=== PATIENT | male | born 1985 | race Caucasian/White ===

== ENCOUNTER 2018-06-20 12:04 | Inpatient (IN) ==
[2018-06-20 13:34] LABS: URINE SOURCE CLEAN CATCH
[2018-06-20 13:40] LABS: BASO# 0.06 X1000 (0.0-0.2); BASO% 0.4 % (0.0-0.8); EOS# 0.08 X1000 (0.0-0.7); EOS% 0.5 % (0.0-10.0); HEMATOCRIT 41.4 % (42.0-52.0); HEMOGLOBIN 13.7 g/dL (14.0-18.0); IMM GRAN# 0.07 X1000 (0.0-0.04); IMM GRAN% 0.4 % (0.0-0.5); LYMPH# 2.88 X1000 (1.2-3.4); LYMPH% 18.3 % (20.5-51.1); MCH 32.3 PG (27-31); MCHC 33.1 g/dL (33-37); MCV 97.6 FL (81-99); MONO% 10.1 % (1.7-9.3); MPV 9.9 FL (7.4-10.4); NEUT# 11.09 X1000 (1.4-6.5); NEUT% 70.3 % (42.2-75.2); PLT 463 X1000 (130-400); RBC 4.24 XMIL (4.7-6.1); RDW 12.2 % (11.5-14.5); WBC 15.78 X1000 (4.8-10.8)
[2018-06-20 13:41] LABS: BILIRUBIN URINE NEGATIVE (NEGATIVE); BLOOD URINE NEGATIVE (NEGATIVE); COLOR YELLOW; GLUCOSE URINE NEGATIVE (NEGATIVE); KETONE URINE >150 mg/dL (NEGATIVE); LEUKOCYTES URINE NEGATIVE (NEGATIVE); NITRITE URINE NEGATIVE (NEGATIVE); PH URINE 5.5; PROTEIN URINE 30 mg/dL (NEGATIVE); SP GRAVITY URINE 1.027; TURBIDITY URINE CLEAR (CLEAR); UROBILINOGEN URINE NORMAL (NORMAL)
[2018-06-20 13:43] LABS: UR EPITHELIAL CELLS <10 /HPF (<10); URINE BACTERIA NEGATIVE /HPF; URINE RBC <10 /HPF (<10); URINE WBC <10 /HPF (<10)
[2018-06-20 14:00] LABS: ESTIMATED GFR > 60
[2018-06-20 14:18] LABS: AGAP 24; BUN 14 mg/dL (8-22); CALCIUM 8.9 mg/dL (8.8-10.2); CHLORIDE 94 mmol/L (98-107); COSMO 264; CREATININE 0.8 mg/dL (0.7-1.2); GLUCOSE 52 mg/dL (70-104); POTASSIUM 4.9 mmol/L (3.5-5.1); SODIUM 133 mmol/L (136-145); TCO2 15 mmol/L (25-35)
[2018-06-20 14:29] LABS: UR BARBITUATES QUAL NONE DETECTED (NONE DETECT)
[2018-06-20 14:30] LABS: UR AMPHETAMINES QUAL NONE DETECTED (NONE DETECT); UR BENZODIAZEPIN QUAL NONE DETECTED (NONE DETECT); UR CANNABINOIDS QUAL NONE DETECTED (NONE DETECT); UR COCAINE QUAL NONE DETECTED (NONE DETECT); UR METHADONE QUAL NONE DETECTED (NONE DETECT); UR OPIATES QUAL NONE DETECTED (NONE DETECT); UR OXYCODONE QUAL NONE DETECTED (NONE DETECT); UR PCP QUAL NONE DETECTED (NONE DETECT)
--- NOTE | 2018-06-20 14:48 | Diag Imaging Result Doc PS360 ---
EXAM: CHEST-PORTABLE INDICATION: cough TECHNIQUE: One view COMPARISON: None. FINDINGS: Inspiration is very suboptimal. The lungs are grossly clear. There is no discrete pleural fluid collection or pneumothorax. The cardiomediastinal silhouette and central vasculature are grossly unremarkable. IMPRESSION: Low lung volumes but no definite acute pathology, otherwise. Electronically signed by Joey Valdez 06/20/2018 2:45 PM
[2018-06-20] MEDS ORDERED: NS 1,000 ML IV ONE (14:52)
[2018-06-20] MEDS ORDERED: ROCEPHIN 1 GM in NS 50 ML IV ONE (14:53)
[2018-06-20] MEDS ORDERED: D5 LR 500 ML IV ONE ×2 (15:52→16:15)
[2018-06-20] MEDS ORDERED: ZOFRAN IV ONE (15:52)
--- NOTE | 2018-06-20 15:57 | PROVIDER DOCUMENTATION ---
This chart was entered by Inna Chaney Scribe, acting as scribe for Ted Melgar MD. HPI-General Adult - General Chief Complaint: General Adult Stated Complaint: right ankle pain Time Seen by Provider: 06/20/18 12:09 Source: patient Allergies/Adverse Reactions: Patient Allergies Allergy/AdvReac Type Severity Reaction Status Date / Time No Known Allergies Allergy Verified 06/20/18 12:38 Home Medications: Home Medication List Medication Instructions Recorded Confirmed Last Taken Type NK [No Home Medications] 06/20/18 06/20/18 Unknown History - History of Present Illness -Gen Adult Nature of Presenting Problems: 32 yom presents to ED by way of EMS c/o aching all over, headache, fever, chills , RIGHT ankle pain, LEFT hip pain for unknown duration. EMS reports patient was dismissed from [facility] 4x, police were called. EMS also reports HX of cocaine and crack use, as well as HX of SI. Location of Pain/Injury: reports: head, generalized Pain Radiation: reports: no radiation Quality of Pain: reports: aching Severity: reports: mild Onset/Duration: reports: unsure Timing: reports: still present, intermittent, constant Context/Activities at Onset: reports: none Modifying Factors: improves with: nothing Associated Symptoms: reports: fever/chills. denies: cough Similar Symptoms Previously?: No Recently seen or treated by another doctor?: Yes Review of Systems - Adult - REVIEW OF SYSTEMS - ADULT ROS:: limited per condition Constitutional: reports: chills, fever Eyes: denies: discharge, dry eyes Ears, Nose, Mouth & Throat: denies: ear discharge, ear pain Cardiovascular: denies: chest pain, palpitations Respiratory: reports: cough Gastrointestinal: denies: abdominal pain, diarrhea Genitourinary: denies: dysuria, hematuria Musculoskeletal: reports: muscle aches, neck pain, other ( RIGHT ankle pain, LEFT hip pain) Integumentary: reports: no symptoms reported Neurological: reports: dizziness/vertigo, headache/migraines Psychiatric: reports: no symptoms reported Endocrine: reports: no symptoms reported Hematologic/Lymphatic: reports: no symptoms reported Allergic/Immunologic: reports: no symptoms reported All Other Systems: Reviewed and Negative Past History - Adult - PAST MEDICAL HISTORY-ADULT Review of Records: reports: Old Records Reviewed, Nursing Assessment Review, Medications Reviewed Major Childhood Illnesses: reports: denies history Cardiovascular: reports: denies history Respiratory: reports: denies history Gastrointestinal: reports: denies history Obstetrical/Gynecological: reports: denies history Genitourinary: reports: denies history Musculoskeletal: reports: denies history Neurological: reports: denies history Psychiatric: reports: bipolar, schizophrenia Endocrine/Immune: reports: thyroid disorder Other Conditions: reports: denies history - PRIOR SURGERIES/PROCEDURES Surgical/Procedure History: reports: other (cyst removal) - IMMUNIZATION STATUS Childhood Immunizations: See Nurse Assessment Flu Vaccine: See Nurse Assessment - FAMILY HISTORY Family History: reviewed, not pertinent - SOCIAL HISTORY Smoking: cigarettes, greater than 1 pack/day Substance Use: alcohol, cocaine, other (Crack) Living Situation: homeless Physical Exam-General - PHYSICAL EXAM-ADULT Initial Vital Signs Reviewed: Yes - CONSTITUTIONAL General Appearance: alert, slow to respond - EYES Eyes: PERRL/EOMI, pink conjunctivae - HEAD, EARS, NOSE, MOUTH & THROAT HENMT: normocephalic/atraumatic, moist mucous membranes - NECK Neck: non-tender, full range of motion - RESPIRATORY Respiratory: chest non-tender, lungs clear, normal breath sounds, no respiratory distress, no accessory muscle use - CARDIOVASCULAR Cardiovascular: normal peripheral pulses, regular rate, rhythm, no gallop, no murmur. negative: tachycardia - GASTROINTESTINAL (ABDOMEN) Abdominal Exam: normal bowel sounds, non tender - LYMPHATIC Lymphatic: no adenopathy - MUSCULOSKELETAL Back Exam: normal inspection, no CVA tenderness, no vertebral tenderness Extremity: normal range of motion, non-tender - SKIN Integumentary: normal color, warm/dry - NEUROLOGIC Neurologic: [employer] II-XII nml as tested, grossly normal - PSYCHIATRIC Psych/Mental Status: normal mood/affect, normal thought content, normal thought process, oriented x 3 Progress - PLAN OF CARE/RESULTS Progress/Plan/Lab Results: Vital Signs - 8 hr 06/20/18 12:10 Temperature 98.1 F Pulse Rate 102 H Respiratory Rate 18 Blood Pressure 152/90 O2 Sat by Pulse Oximetry 100 Result Diagrams: 06/20/18 13:21 06/20/18 13:21 - REASSESSMENT Reassessment #1 Time Reassessed: 15:53 Status: unchanged (STILL RECURRENT VOMITING AND WEAK, HAS NOT YET RETAINED FOOD/ PO FLUIDS, WILL ADD D5LR AT 150ML/HR) - XRAY 1 XRAY Study: Chest Impression: Abnormal (FINDINGS: Inspiration is very suboptimal. The lungs are grossly clear. There is no discrete pleural fluid collection or pneumothorax. The cardiomediastinal silhouette and central vasculature are grossly unremarkable. IMPRESSION: Low lung volumes but no definite acute pathology, otherwise.) - CONSULTS/PCP/HOSPITALIST Notification #1 *Consult/PCP/Hospitalist*: DR TORRES Time Discussed: 15:27 Consult Disposition: Admit Departure - Departure Date of Disposition Decision: 06/20/18 Time of Disposition Decision: 15:54 DIAGNOSIS: Hypoglycemia, Weakness, Bronchitis, Leukocytosis Disposition: ADMITTED INPATIENT 09 Certified Medical Emergency: Emergent Condition: Stable Additional Freetext Instructions: ED Follow Up Instructions: You have been treated by a care provider in the Emergency Department. These instructions are being provided to you so you can have an understanding of how to care for yourself upon discharge. Upon discharge from the Emergency Department, you are responsible for making arrangements for follow-up care by a physician of your choice. Take all prescribed medications as directed. Return to the Emergency Department immediately for any new or worsening symptoms. You may call the Physician Referral phone number at [phone] to obtain a list of Physicians who are taking new patients. Referrals and Follow-Ups: None,PCP [Primary Care Provider] - Discharge Education: Fever, Adult, Cough, Adult, [id number] - Critical Care Note This patient required my direct & personal management of CC.: No Attestation - Physician/ MERRICK Attestation Patient care was provided by Advanced Practice Provider:: No The physician spent face to face time with patient:: Yes Advanced Practice Provider documentation review:: Supervising physician onsite and consulted in the evaluation and care of this patient. The physician did have a face to face encounter with the patient. This chart was documented by the indicated scribe, (Inna Chaney Scribe) and accurately reflects the services I performed and decisions made by me, Ted Melgar MD, as attested by the provider's signature.
[2018-06-20] MEDS ORDERED: D5 LR 1,000 ML IV ONE (16:15)
[2018-06-20] MEDS ORDERED: ZOFRAN IV PRN (17:54)
[2018-06-20] MEDS ORDERED: SODIUM CHLORIDE 0.9% INJ PRN (18:50)
[2018-06-21] MEDS: D5 LR 1,000 ML IV SCH ×4 (00:22→20:59)
[2018-06-21] MEDS ORDERED: VALIUM PO ONE (00:40)
--- NOTE | 2018-06-21 01:13 | HISTORY AND PHYSICAL ---
HISTORY OF PRESENT ILLNESS: He presents with intractable nausea and vomiting for the last 24 hours. He has a very weird or strange affect, almost a childishness about him. He does have intellectual impairment, but then there may be a psychiatric component of delusional thinking or maybe some magical thinking. In any case, he came in. He has frequent falls. [place] is [place] I think he was trying to describe under the bridge, but he has fallen and he definitely has bruising on his left arm and face. He has been to the ER frequently. Two days ago, he was at the [facility] and then the [facility] ER 4 times on the . Today, he says he has been sick and throwing up, and he cannot get better. He cannot keep anything down. He says he may have drank contaminated mud water, and there were animal carcasses nearby with flies circulating. He is from this area, but he is without home or without caregiver. No chronic diagnoses noted, but he has not been eating and drinking very well in the last 24 hours. He has had essentially a stomach flu or food poisoning type situation. When he came in, he was a bit tachycardic but afebrile. His lab showed a white count of 15,000 with a little bit of acidosis. His bicarb was 15, and he has a gap. His sugar was 52, though. In any case, he was admitted for intractable nausea, vomiting, but it is unclear right now what is causing his main issues. PAST MEDICAL HISTORY: Denies. He has been here for psychiatric issues associated with depression, and he does have polysubstance abuse. PAST SURGICAL HISTORY: He reports a cyst removal. According to the record, though, he has paranoid schizophrenia and hypothyroidism. FAMILY HISTORY: Also with schizophrenia. SOCIAL HISTORY: He lives with a foster mom, and he is a pack-a-day smoker. He did admit to that. He does drink alcohol when he can, he says 1 to 2 beers but then also 1 to 2 bottles of whiskey. No drug use but he has used methamphetamine, cocaine. He has used several of those things in the past. ALLERGIES: No known drug allergies. MEDICATIONS: He is supposed to be on clozapine, fluvoxamine, iron, and Synthroid, and he is not. SUICIDE-HOMICIDE RISK: He denies any suicidal ideation at this time or homicidal ideation. REVIEW OF SYSTEMS: Otherwise negative. PHYSICAL EXAMINATION: VITAL SIGNS: Blood pressure is 144/65, heart rate 104, respiratory rate 16, temperature 97.4 degrees. GENERAL: An obese male in no acute distress. HEENT: Head exam: Normocephalic, atraumatic. Eye exam: Pupils equal, round, reactive to light. Extraocular movements were intact. Ear, nose, and throat exam: He had moist mucous membranes. NECK: Supple. CARDIOVASCULAR: Regular rate and rhythm. No murmurs, gallops, or rubs. PULMONARY: Bilateral breath sounds. Clear to auscultation. GASTROINTESTINAL: Soft, nontender, nondistended. Bowel sounds were positive. NEUROLOGIC: Nonfocal. SKIN: Showed a periorbital ecchymosis on the left eye and some abrasions on the left elbow. He has bruising of various sorts, one over his left forearm, right forearm, and abdomen in various states of healing. LABORATORY STUDIES: White count is 15, hemoglobin 13, hematocrit 41, platelets 463,000. Sodium 133, bicarb 15 with a gap of 24. Sugar was 52. PROBLEM LIST: 1. Dehydration. We will continue to follow closely. Continue hydration and monitor. 2. Hypoglycemia, likely related to poor oral intake. We will monitor and adjust accordingly. Currently, he is on D5 LR. We will rule out any major pathology, plain films to rule out obstruction or anatomical issues, and then stool for ova and parasites just to ensure that there are not any other toxins noted. 3. Paranoid schizophrenia. It is unclear that he takes his medications. It is also, I guess, unclear that he will comply with his medications, which may be part of his current predicament unfortunately. 4. Disposition: Home once his vital signs have stabilized and there is no major pathology noted. Curiously, this time, he had no evidence of drugs in his system. cc: Jey King MD
[2018-06-21 02:11] LABS: MAGNESIUM 1.9 mg/dL (1.5-2.7); POTASSIUM 3.4 mmol/L (3.5-5.1)
[2018-06-21] MEDS ORDERED: KLOR-CON PO ONE (05:52)
[2018-06-21] MEDS: TYLENOL PO PRN (06:16)
[2018-06-21 07:27] LABS: BASO# 0.03 X1000 (0.0-0.2); BASO% 0.3 % (0.0-0.8); EOS# 0.06 X1000 (0.0-0.7); EOS% 0.6 % (0.0-10.0); HEMATOCRIT 35.1 % (42.0-52.0); HEMOGLOBIN 11.3 g/dL (14.0-18.0); IMM GRAN# 0.03 X1000 (0.0-0.04); IMM GRAN% 0.3 % (0.0-0.5); LYMPH# 2.57 X1000 (1.2-3.4); MCH 31.7 PG (27-31); MCHC 32.2 g/dL (33-37); MCV 98.3 FL (81-99); MONO# 1.26 X1000 (0.11-0.59); MONO% 13.2 % (1.7-9.3); MPV 9.8 FL (7.4-10.4); NEUT# 5.57 X1000 (1.4-6.5); NEUT% 58.6 % (42.2-75.2); PLT 395 X1000 (130-400); RBC 3.57 XMIL (4.7-6.1); RDW 12.1 % (11.5-14.5); WBC 9.52 X1000 (4.8-10.8)
[2018-06-21 07:45] LABS: AGAP 14; ALB/GLOB RATIO 1.5; ALBUMIN 3.3 g/dL (3.5-5.0); ALKALINE PHOSPHATASE 40 U/L (32-122); BUN 8 mg/dL (8-22); CHLORIDE 104 mmol/L (98-107); COSMO 278; CREATININE 0.7 mg/dL (0.7-1.2); ESTIMATED GFR > 60; GLUCOSE 110 mg/dL (70-104); GOT 30 U/L (10-34); GPT 21 U/L (10-44); POTASSIUM 3.5 mmol/L (3.5-5.1); SODIUM 140 mmol/L (136-145); TCO2 22 mmol/L (25-35); TOTAL BILIRUBIN 0.42 mg/dL (0.20-1.00); TOTAL PROTEIN 5.5 g/dL (6.3-8.3)
--- NOTE | 2018-06-21 08:22 | Diag Imaging Result Doc PS360 ---
EXAM: ABDOMEN FLAT/UPRIGHT INDICATION: sbo TECHNIQUE: 3 views COMPARISON: None. FINDINGS: There is patchy small bowel gas with only minimal distention that is nonspecific. There is nothing that is necessarily specific for obstruction. This may represent mild ileus. There is no evidence of large volume free abdominal gas. There is no evidence of organomegaly. IMPRESSION: Nonspecific abdomen. Electronically signed by Joey Valdez 06/21/2018 8:20 AM
[2018-06-21] MEDS: PHENERGAN IV PRN (09:39)
[2018-06-21] MEDS ORDERED: LACTULOSE PO ONE (16:08)
[2018-06-21] MEDS ORDERED: HALDOL IV PRN (17:13)
[2018-06-21] MEDS ORDERED: SODIUM CHLORIDE 0.9% INJ SCH (17:15)
[2018-06-21] MEDS: PROTONIX IV SCH (17:41)
[2018-06-21] MEDS: MIRALAX PO SCH (17:49)
[2018-06-21 18:32] LABS: AGAP 9; ALB/GLOB RATIO 1.6; ALBUMIN 3.4 g/dL (3.5-5.0); ALKALINE PHOSPHATASE 38 U/L (32-122); BUN 6 mg/dL (8-22); CHLORIDE 100 mmol/L (98-107); COSMO 270; CREATININE 0.8 mg/dL (0.7-1.2); ESTIMATED GFR > 60; GLUCOSE 143 mg/dL (70-104); GOT 26 U/L (10-34); GPT 24 U/L (10-44); POTASSIUM 3.4 mmol/L (3.5-5.1); SODIUM 135 mmol/L (136-145); TCO2 26 mmol/L (25-35); TOTAL BILIRUBIN 0.25 mg/dL (0.20-1.00); TOTAL PROTEIN 5.5 g/dL (6.3-8.3)
--- NOTE | 2018-06-21 18:39 | PROGRESS NOTE ---
DATE: 06/21/2018 SUBJECTIVE: The patient has no major complaints except he keeps on throwing up, he cannot keep anything down. He has not had a bowel movement though. OBJECTIVE: His blood pressure is 118/57, heart rate of 57, respiratory rate of 16, temperature was 98.1 degrees.Cardiovascular: Regular rate and rhythm. Pulmonary: Bilateral breath sounds clear to auscultation. GI: Soft, nontender, nondistended. Bowel sounds are positive. LABORATORY DATA: White count is down to 9, hemoglobin and hematocrit 11, 35, platelets 395,000, potassium is 3.4, TSH of 5.31. PROBLEM LIST: 1. Intractable nausea, vomiting thought this was possibly related to a gastroenteritis. It is not really clear at this point. His white count is improved. His abdominal exam is pretty benign but he cannot keep anything down and I do not really have a good explanation for that. There is some concern maybe he is inducing emesis. Looking at his history there is a concern over possible malingering so I am not sure, we will progress with CT because there is not really a diagnosis so far and a GI consult. We will continue antiemetics and fluids. 2. Hypoglycemia. That seems to have resolved. We will continue hydration and follow. 3. Schizophrenia history of, he is not currently on any medications. We have not had any major agitation issues. I will put some Haldol in in case he gets a little bit upset and will see how he does. DISPOSITION: Pending his clinical status. At this point he has got to be able to tolerate p.o. before we can anticipate any other process. cc: eJy King MD
--- NOTE | 2018-06-21 19:51 | Diag Imaging Result Doc PS360 ---
EXAM: CT ABD/PELVIS W/PO AND IV CON INDICATION: n/v persistent TECHNIQUE: This exam was performed using automated exposure control, adjustment of mA or kV according to patient size, and/or use of iterative reconstruction technique. COMPARISON: None. FINDINGS: There is mild subsegmental atelectasis at the right lung base. There is focal fatty infiltration in the liver adjacent to the falciform ligament. There is a tiny hypodense focus at the posterior aspect of the right hepatic lobe that probably represents a miniscule cyst. The liver is grossly unremarkable, otherwise. The gallbladder, spleen, pancreas, adrenal glands, kidneys, and urinary bladder are grossly unremarkable. The appendix is normal. No focal bowel wall thickening or evidence of bowel obstruction is appreciated. The remainder of the GI tract is essentially unremarkable. No focal inflammatory changes, free abdominal gas, or free fluid is identified. IMPRESSION: Incidental/nonacute findings detailed above. No evidence of acute pathology by CT. Electronically signed by Joey Valdez 06/21/2018 7:49 PM
[2018-06-21] MEDS: LACTULOSE PO SCH (20:59)
[2018-06-22] MEDS: D5 LR 1,000 ML IV SCH ×2 (04:07→13:58)
[2018-06-22] MEDS: PHENERGAN IV PRN ×2 (05:36→10:20)
[2018-06-22 07:12] LABS: BASO# 0.05 X1000 (0.0-0.2); BASO% 0.7 % (0.0-0.8); EOS# 0.05 X1000 (0.0-0.7); EOS% 0.7 % (0.0-10.0); HEMATOCRIT 35.1 % (42.0-52.0); HEMOGLOBIN 11.3 g/dL (14.0-18.0); LYMPH# 2.31 X1000 (1.2-3.4); LYMPH% 31.5 % (20.5-51.1); MCH 31.9 PG (27-31); MCHC 32.2 g/dL (33-37); MCV 99.2 FL (81-99); MONO# 0.92 X1000 (0.11-0.59); MONO% 12.6 % (1.7-9.3); MPV 9.9 FL (7.4-10.4); NEUT% 54.5 % (42.2-75.2); PLT 367 X1000 (130-400); RBC 3.54 XMIL (4.7-6.1); RDW 12.2 % (11.5-14.5); WBC 7.33 X1000 (4.8-10.8)
[2018-06-22 07:37] LABS: AMYLASE 32 U/L (20-200); LIPASE 20 U/L (13-60)
[2018-06-22] MEDS: TYLENOL PO PRN (07:38)
[2018-06-22] MEDS: LACTULOSE PO SCH (08:00)
[2018-06-22] MEDS: MIRALAX PO SCH (08:00)
[2018-06-22] MEDS ORDERED: LOVENOX SUBQ SCH (13:00)
--- NOTE | 2018-06-22 13:11 | PROGRESS NOTE ---
DATE: 06/22/2018 SUBJECTIVE: Patient is resting in bed. OBJECTIVE: Vital signs: Temperature is 98.1, pulse is 64, respirations 19, blood pressure is 119/75, oxygen saturation is 100%. HEENT: Patient is atraumatic, normocephalic. Cardiovascular: S1, S2. Respiratory: Has evidence of good air entry bilaterally. Abdomen: Soft, nontender. No masses felt. Extremities: No evidence of edema. Central nervous system: No obvious focal deficits noted. LABS: WBC 7.33, hematocrit is 35.1, with a platelet count of 367,000. ASSESSMENT AND PLAN: 1. Probable acute gastroenteritis. Maintain patient n.p.o. except for clear liquids. Maintain him on antiemetics and also send out stool for WBC ,culture as well as C. difficile. 2. History of schizophrenia. The patient is not currently taking any medications for this condition at this time. The patient will benefit from a psychiatric evaluation at some point. 3. Anemia. Will check iron studies as well as a B12 and folate level and also stool for occult blood. 4. Hypokalemia. Replace potassium level and check magnesium level as well. 5. Deep vein thrombosis prophylaxis. Lovenox. 6. Gastrointestinal prophylaxis. PPI. cc: Alexander Morgan MD MTDD
--- NOTE | 2018-06-22 13:28 | Diag Imaging Result Doc PS360 ---
EXAM: ANKLE 2 VIEWS RIGHT 06/22/2018 HISTORY: pain right ankle TECHNIQUE: Right ankle two views COMMENT: There is no evidence of fracture or dislocation periosteal reaction or erosion. IMPRESSION: No evidence of acute bony disease. Electronically signed by Dennis Owen 06/22/2018 1:26 PM
[2018-06-22 14:10] LABS: IRON SATURATION 20 %; TIBC 211 ug/dL; TOTAL IRON 42 ug/dL (53-167); UNBOUND IRON 169 ug/dL (112-346)
[2018-06-22 14:29] LABS: FERRITIN 298 ng/mL (30-400)
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
[2018-06-22] MEDS ORDERED: HALDOL IM PRN (15:17)
[2018-06-22] MEDS ORDERED: ZOFRAN ODT PO PRN (15:19)
[2018-06-22] MEDS: PROTONIX IV SCH (18:06)
--- NOTE | 2018-06-23 07:17 | Diag Imaging Result Doc PS360 ---
EXAM: CT ABDOMEN/PELVIS W/O CONTRAST 06/23/2018 HISTORY: inserted foreign object into rectum TECHNIQUE: This exam was performed using automated exposure control, adjustment of mA or kV according to patient size, and/or use of iterative reconstruction technique. COMMENT: The current examination is compared with the previous study of 06/21/2018 there is some improvement in atelectasis seen previously in the right lower lobe. There is no evidence of nephrolithiasis. There are no apparent calcified gallstones. There is some questionable pericholecystic fluid or mural edema in the gallbladder. The study is somewhat suboptimal due to patient motion. There is no evidence of bowel obstruction or appendicitis. There is a tiny amount of free fluid in the rectovesical pouch. Some residual oral contrast from the previous study is present in the rectum. There is some apparent submucosal gas present in the rectum. The urinary bladder is unremarkable. There is subcutaneous gas over the anterior upper lateral pelvic wall on the left. The regional skeleton is intact. IMPRESSION: The possibility of a mucosal tear in the rectum cannot be excluded. Nonspecific free pelvic fluid. Mural edema/pericholecystic fluid. Electronically signed by Dennis Owen 06/23/2018 7:15 AM
[2018-06-23 08:25] LABS: AGAP 10; BUN 6 mg/dL (8-22); CALCIUM 8.6 mg/dL (8.8-10.2); CHLORIDE 102 mmol/L (98-107); COSMO 277; CREATININE 0.7 mg/dL (0.7-1.2); ESTIMATED GFR > 60; GLUCOSE 98 mg/dL (70-104); MAGNESIUM 1.9 mg/dL (1.5-2.7); POTASSIUM 3.6 mmol/L (3.5-5.1); SODIUM 140 mmol/L (136-145); TCO2 28 mmol/L (25-35); TOTAL IRON 31 ug/dL (53-167)
[2018-06-23] MEDS ORDERED: STERILE WATER INJ. INJ PRN (10:44)
[2018-06-23] MEDS ORDERED: GEODON IM PRN (10:44)
[2018-06-23] MEDS ORDERED: CITRATE OF MAGNESIA PO ONE (10:53)
--- NOTE | 2018-06-23 11:27 | Diag Imaging Result Doc PS360 ---
EXAM: KUB ABDOMEN 06/23/2018 HISTORY: foreign body TECHNIQUE: KUB COMMENT: The bowel gas pattern is nonspecific. There is no evidence of organomegaly or mass. There is no evidence of radiopaque foreign bodies. There are no abnormal calcifications. IMPRESSION: Nonspecific abdomen. Electronically signed by Dennis Owen 06/23/2018 11:24 AM
[2018-06-23 11:31] LABS: BASO# 0.04 X1000 (0.0-0.2); BASO% 0.4 % (0.0-0.8); EOS# 0.03 X1000 (0.0-0.7); EOS% 0.3 % (0.0-10.0); HEMATOCRIT 38.4 % (42.0-52.0); HEMOGLOBIN 12.6 g/dL (14.0-18.0); LYMPH# 1.43 X1000 (1.2-3.4); LYMPH% 14.6 % (20.5-51.1); MCHC 32.8 g/dL (33-37); MCV 97.5 FL (81-99); MONO# 1.08 X1000 (0.11-0.59); MPV 9.9 FL (7.4-10.4); NEUT# 7.22 X1000 (1.4-6.5); NEUT% 73.7 % (42.2-75.2); PLT 425 X1000 (130-400); RBC 3.94 XMIL (4.7-6.1); RDW 11.8 % (11.5-14.5)
--- NOTE | 2018-06-23 13:34 | PROGRESS NOTE ---
DATE: 06/23/2018 SUBJECTIVE: Patient is awake, alert, sitting up on the side of bed in no acute distress. I have spoken with the nurse and apparently patient has inserted foreign objects into his rectum yesterday afternoon. A CT scan of the abdomen and pelvis showed a possible mucosal tear in the rectum could not be excluded. There was nonspecific free pelvic fluid with mural edema/pericholecystic fluid. From the nurses report, patient inserted a syringe that he had gotten out of the garbage can, also a paper bag and aluminum cover from a juice container. Patient does have some known psychiatric issues. I believe [facility] consultation has been placed. Per patient, he has not had any vomiting today. OBJECTIVE: Vital Signs: Temperature 98.6, pulse 82, blood pressure 131/84. General: The patient is awake and alert, no acute distress. He is sitting on the side of the bed. He is having some blood work done. LABORATORY: Hematology: WBC 9.80, hemoglobin 12.6, hematocrit 38.4, MCV 97.5, platelets 425. Chemistry: Sodium 140, potassium 3.6, chloride 102, CO2 of 28, BUN 6, creatinine 0.7, glucose 98. ASSESSMENT AND PLAN: 1. Nausea and vomiting. Continue symptomatic treatment. 2. Foreign body insertion in the rectum. Possibility of a tear. I believe [facility] have been consulted. As far as GI is concerned, once able, patient can be transferred or discharged and admitted to [facility] if appropriate. Gastroenterology will be available as needed. I have discussed this case with Dr. Castillo. Dictated by EMILEE Naqvi for Brad Castillo MD cc: EMILEE Leon MD
[2018-06-23 16:19] VITALS: BP 140/76
--- NOTE | 2018-06-23 19:31 | GENERAL SURGERY CONSULTATION ---
DATE: 06/23/2018 HISTORY OF PRESENT ILLNESS: This is a 32-year-old gentleman with a psychiatric history. He is being admitted, waiting on an inpatient bed. Apparently over the last 24 hours he has been inserting foreign bodies per his anus. He has had CT scans and x-rays that showed no retained foreign bodies. Denies any bleeding. Is having regular bowel function. No abdominal pain. Does have some anal discomfort. MEDICAL HISTORY: PSYCHIATRIC: Depression, homelessness, polysubstance abuse. SURGICAL: He has had a cyst removed. No abdominal operations. FAMILY HISTORY: Reviewed and is significant for schizophrenia. SOCIAL HISTORY: Part of the foster system. Pack-a-day smoker. Drinks alcohol. No other illicit drugs. REVIEW OF SYSTEMS: Ten-point is negative. He has never had a colonoscopy. PHYSICAL EXAMINATION: VITAL SIGNS: Temperature is 98.3, pulse 80, blood pressure 140/76, oxygen saturation 97%. GENERAL: He is somewhat unkempt but in no acute distress. HEENT: There is no scleral icterus. NECK: No cervical masses. CARDIOVASCULAR: Normal rate. PULMONARY: No increased work of breathing. ABDOMEN: Soft, nontender, nondistended. I do not see any obvious scars. SKIN: Warm and dry. PSYCHIATRIC: Appropriate mood and affect. RECTAL: I do not see any perianal induration. No gross blood. EXTREMITIES/PERIPHERAL VASCULAR: No lower extremity edema. LABORATORY DATA: White count is 9, hematocrit 38, platelets 425. Creatinine 0.7, glucose 122. CT scan of the abdomen and pelvis from the and abdominal x-ray from the were both reviewed. He has also had a CT scan from the , none of which show evidence of perforation or retained foreign body. ASSESSMENT/PLAN: This is a 32-year-old gentleman with an extensive psychiatric history. His abdominal exam is benign. He is having regular bowel function with no bleeding. I do think that it is in his best interest to have an inpatient psychiatric evaluation, and I would plan no further surgical intervention at this juncture. cc: Jeramie Nascimento MD
--- NOTE | 2018-06-24 04:44 | DISCHARGE SUMMARY ---
ADMISSION DATE: 06/22/2018 DISCHARGE DATE: 06/23/2018 DISCHARGE DIAGNOSES: 1. Intractable nausea and vomiting possibly due to enteritis. 2. Possible rectal mucosal injury due to foreign object insertion. 3. Schizophrenia, uncontrolled, but without active psychosis. HISTORY: This is a 32-year-old homeless man. He has a long history of schizophrenia, but he is not taking any medications. He came in with significant throwing up. His plain films were negative. His CT scan was really unremarkable. He states that he probably drank contaminated water. We also went ahead and got a GI consult. All of his testing was really unremarkable. We checked all of his stool tests. They were negative. His hemoglobin and hematocrit has been stable. He did have some leukocytosis when he came in, but that resolved. Amylase, lipase, B12, folate, and TSH was a bit elevated. Anyway, he was ready for discharge. The nurses noted that he was inserting things into his rectum where they found things. CT scan showed a possible tear in the mucosa. I discussed the case with Dr. Castillo. We got a repeat KUB, which showed no free air. Dr. Nascimento I think evaluated the patient, and felt that there was nothing surgical to be done. There was no injury. There was no blood noted, and he had a normal bowel movement, and a normal abdominal exam so he was felt stable for discharge on the . I did have him evaluated by [facility], but he really was not interested in participating in any inpatient therapy. He did not want any medications for his psychiatric disorder. Clinically, he was felt stable. All of his stool studies, culture, O and P, throat culture, influenza antigen assay, white blood cells were all negative. Hemoccult was even negative. He was discharged on his own. Follow up as needed. Advise not to insert objects that could potentially harm him in his rectal area. cc: Jey King MD
== END 2018-06-23 18:44 | disposition home or self-care (01) | DRG 392 ==
LOC: SUPCPDRO → 3N 12:04 → ED 12:04 → SUATTDRO 16:19 → 3N 06-22 18:14
PROVIDERS: ATTEND Internal Medicine
CPT/HCPCS: 71010; 71045; 73600; 74000; 74018; 74019; 74020; 74176; 74177; 80048; 80053; 80101; 80301; 80307; 80320; 80324; 80345; 80346; 80353; 80358; 80361; 80365; 81001; 82055; 82150; 82270; 82607; 82728; 82746; 82948; 83540; 83550; 83690; 83735; 83992; 84132; 84443; 85025; 87045; 87046; 87081; 87177; 87205; 87275; 87276; 87324; 87430; 87449; 87493; 87804; 88313; 89055; 96365; 96375; 99285; A9270; C9113; G0431; G0434; G0479; G0480; G6040; J0696; J1650; J2405; J2550; J7030; J7121; Q9967; S0164; XXXXX